=== PATIENT | male | born 1955 | race Caucasian/White ===

== ENCOUNTER 2019-01-30 11:35 | Day surgery (SDC) | payer OTHER ==
[2019-01-30] MEDS ORDERED: SOD CHLORIDE 0.9% 1,000 ML IV (14:00)
[2019-01-30] MEDS ORDERED: PROPOFOL 20 ML (14:08)
[2019-01-30] MEDS ORDERED: FENTAnyl 50 MCG/ML VIAL (14:08)
[2019-01-30] MEDS ORDERED: LIDOCAINE 100 MG SYRINGE (14:08)
[2019-01-30] MEDS ORDERED: ROCURONIUM 50 MG INJ (14:08)
[2019-01-30] MEDS ORDERED: CEFAZOLIN 1 GM INJ (14:08)
[2019-01-30] MEDS ORDERED: BUPIVACAINE 0.25%/EPI (SDV) 30 ML INJ (14:42)
[2019-01-30] MEDS: BUPIVACAINE 0.25% (MPF) 30 ML INJ (16:10)
[2019-01-30] MEDS ORDERED: NEOSTIGMINE 3 MG/3 ML SYRINGE (16:25)
[2019-01-30] MEDS ORDERED: GLYCOPYRROLATE 0.4 MG INJ (16:25)
[2019-01-30] MEDS ORDERED: HYDROCODONE/APAP (5/325) TAB PO (16:30)
[2019-01-30] MEDS ORDERED: morphine 2 MG INJ IV (16:30)
[2019-01-30] MEDS ORDERED: IBUPROFEN 600 MG TAB PO (16:30)
[2019-01-30] MEDS: POLYMYXIN/BACITRACIN 1L IRRIG (16:40)
[2019-01-30] MEDS: KETOROLAC 30 MG INJ IV (16:48)
[2019-01-30] MEDS: HYDROCODONE/APAP (5/325) TAB PO (16:48)
[2019-01-30] MEDS ORDERED: MEPERIDINE 25 MG INJ (16:53)
[2019-01-30] MEDS: CEFAZOLIN 2 GM/50 ML (PMX) 50 ML IVPB (16:54)
[2019-01-30] MEDS ORDERED: hydrALAzine 20 MG INJ (16:56)
[2019-01-30] MEDS ORDERED: HYDROmorphONE 1 MG/5 ML IV SYRINGE IV (17:00)
[2019-01-30] MEDS ORDERED: ALBUTEROL 0.083% (NEB) 2.5 MG/3 ML AMP HHN (17:00)
[2019-01-30] MEDS ORDERED: LABETALOL HCL 20MG INJ IV (17:00)
[2019-01-30] MEDS ORDERED: EPHEDrine SULFATE 50 MG/5 ML SYG IV (17:00)
[2019-01-30] MEDS: hydrALAzine 20 MG INJ IV (17:00)
[2019-01-30] MEDS ORDERED: FENTAnyl 50 MCG/ML VIAL IV ×3 (17:00)
[2019-01-30] MEDS ORDERED: OXYCODONE/ACETAMINOPHEN (5/325) TAB PO ×2 (17:00)
[2019-01-30] MEDS ORDERED: DIPHENHYDRAMINE 50 MG INJ IV (17:00)
[2019-01-30] MEDS ORDERED: KETOROLAC 30 MG INJ IV (17:00)
[2019-01-30] MEDS: HYDROmorphONE 1 MG/5 ML IV SYRINGE IV ×2 (17:03→17:20)
[2019-01-30] MEDS: MEPERIDINE 25 MG INJ IV (17:03)
[2019-01-30] MEDS: ONDANSETRON 4 MG INJ IV ×2 (17:03→18:05)
== END 2019-01-30 18:15 | disposition home or self-care (01) ==
LOC: SDS 11:35
DX: K43.6 Other and unspecified ventral hernia with obstruction, without gangrene (principal); I10 Essential (primary) hypertension
CPT/HCPCS: 49561; 88302